=== PATIENT | male | born 1975 | race Caucasian/White ===

== ENCOUNTER 2018-01-23 08:02 | Emergency (ER) | payer OTHER ==
[~2018-01-23] VITALS: Ht 604 cm; Wt 77.2 kg
[2018-01-23 08:04] VITALS: BP 126/75
== END 2018-01-23 08:18 | disposition home or self-care (01) ==
LOC: ER 08:02
DX: S40.812A Abrasion of left upper arm, initial encounter (principal); S40.811A Abrasion of right upper arm, initial encounter; S90.811A Abrasion, right foot, initial encounter; S80.911A Unspecified superficial injury of right knee, initial encounter; X97.XXXA Assault by smoke, fire and flames, initial encounter; Y93.89 Activity, other specified; Y92.89 Other specified places as the place of occurrence of the external cause; Y99.8 Other external cause status
CPT/HCPCS: 99283